=== PATIENT | male | born 1995 | race Caucasian/White ===

== ENCOUNTER 2020-05-30 14:33 | Emergency (ER) | payer OTHER, SELFPAY ==
[2020-05-30] VITALS (12 sets, daily range): BP systolic 118–169; BP diastolic 58–96; PULSE 64–92; RESP 13–28; TEMP 36.7; O2SAT 97–100; BMI 21.4
--- NOTE | 2020-05-30 14:46 | ED_ITS ---
HPI - Chest Pain <Chito Banks [facility] - Last Filed: 05/30/20 16:53> General Chief Complaint: Chest Pain Stated Complaint: chest pain, numbness chest stomach right arm Time Seen by Provider: 05/30/20 14:37 Source: patient Mode of arrival: Ambulatory Limitations: no limitations History of Present Illness HPI narrative: This is a 24-year-old male, nonsmoker, who has past medical history significant for aortic stenosis with valve replacement surgery x2 in 4 and 2 years ago and a pacemaker for postsurgical heart block presents to ED with non reproducible severe mid chest pain radiating to bilateral chest and epigastrium with associated symptoms as right upper and lower extremity numbness which lasted 20-30 minutes without exertion. Patient has cardia management is from . Patient rated pain as 8/10 but now it has subsided to 1/10. Patient initially thought heart burn since he had heartburn symptoms for last 2-3 days which is unusual for him. Patient denies nausea, vomiting, short of breath, dizziness. Patient denies recent changes in diet eating more spicy or oily food. Patient denies exposure to known COVID. Patient currently on warfarin with a therapeutic goal of 2-3. Last INR checked 2 days ago with 2.9. PCP Dr. Lopez at [facility]. Related Data Previous Rx's Medication Instructions Recorded prednisone 40 mg PO DAILY #10 tab 05/30/20 Allergies Allergy/AdvReac Type Severity Reaction Status Date / Time No Known Drug Allergies Allergy Verified 05/30/20 14:42 Review of Systems <Chito Banks [facility] - Last Filed: 05/30/20 16:53> Review of Systems Narrative: General: Denies fever, chills, fatigue, malaise, sweats. HEENT: Denies sinus pain, ear pain, sore throat, difficulty swallowing, dizziness. Respiratory: Denies dyspnea, cough, wheezing, hemoptysis, sputum. Cardiovascular: See HPI Gastrointestinal: Denies nausea, vomiting, abdominal pain, diarrhea, constipation, melena. : Denies dysuria, frequency, incontinence, hematuria, urinary retention. Musculoskeletal: Denies weakness, joint pain or bony pain. Skin: Denies rash, skin lesions, or other. Neurologic: Denies weakness, headache, (+) RUE and RLE numbness, change in speech, confusion, seizures, incoordination. Psychiatric: No concerning psychosocial issues. 12-point review of systems is negative except for those stated above. Patient History <KADEEM Coffman - Last Filed: 05/30/20 16:53> Medical History Aortic stenosis Heart block Pacemaker Surgical History Aortic valve replaced Social History Smoking Status: Never smoker Smoking Status: Never smoker Substance Use Type: does not use Exam <KADEEM Coffman - Last Filed: 05/30/20 16:53> Narrative Exam Narrative: GEN: Alert, oriented x 3, well appearing and nourished, and in no acute distress. Head: Normal cephalic, atraumatic. No scalp or temporal tenderness, palpable mass or rash. EYES: Pupils are equal, round, and reactive to light and accommodation. Extraocular muscles are intact bilaterally. There is no subconjunctival hemorrhage, exudate and sclera non-icteric. ENT: Hearing grossly intact. Nose without bleeding, purulent discharge or deviation. Mucous membrane moist, no mucosal lesion. Throat without erythema, tonsillar hypertrophy or exudate. Uvula in midline, airway patent. Neck: Trachea in midline. No JVD, non-tender without lymphadenopathy. No masses or thyroid megaly. Supple, non-tender and no meningeal signs. CARDIAC: Normal regular rate and rhythm without murmurs, gallops, or rubs but clicks. No chest wall tenderness. No peripheral edema, cyanosis or pallor. Capillary refill is less than 2 seconds. RESPIRATORY: Lungs are clear to auscultate bilaterally. No cough, wheezes, rales, or rhonchi. No stridor, respiratory distress, increase work of breathing, or accessary muscle used. ABD: Abdomen soft, nontender and non-distended. No guarding or rebound tenderness to palpate. Bowel sounds are normal in all 4 quadrants. There is no palpable masses or organomegaly. EXT: Full painless ROM of all extremities with no loss of sensation, strength, effusion or edema. SKIN: Well-healed vertical surgical incision on sternum and left upper clavicle region. Warm, dry, normal color for patient. No erythema, lesions or rash over visible areas. BACK: Nontender without deformity or crepitance. No flank tenderness. NEUROLOGICAL: Alert and oriented to place, time and person. Sensation and motor function intact bilaterally. No facial droops, dysphasia. PSYCHIATRIC: Good judgement and reason, without hallucinations, abnormal affect or abnormal behaviors during the examination. Patient is not suicidal. Initial Vital Signs Initial Vital Signs: Vital Signs Temperature 98.1 F 05/30/20 14:42 Pulse Rate 92 H 05/30/20 14:42 Respiratory Rate 17 05/30/20 14:42 Blood Pressure 169/96 H 05/30/20 14:42 Pulse Oximetry 100 05/30/20 14:42 <Ruby Haque DO - Last Filed: 05/31/20 10:57> Initial Vital Signs Initial Vital Signs: Vital Signs Temperature 98.1 F 05/30/20 14:42 Pulse Rate 92 H 05/30/20 14:42 Respiratory Rate 17 05/30/20 14:42 Blood Pressure 169/96 H 05/30/20 14:42 Pulse Oximetry 100 05/30/20 14:42 Scores <KADEEM Coffman - Last Filed: 05/30/20 16:53> GCS [place] coma scale eye opening: Spontaneous Malorie coma scale verbal response: Orientated Malorie coma scale motor response: Obey commands Malorie coma scale total score: 15 HEART Score Heart Score history: Slightly Suspicious Heart Score EKG: Non-Specific repolarization disturbance Heart Score Age: < 45 years old Heart Score risk factors: 1-2 risk factors Heart Score troponin: < or = to normal limit Heart Score Total: 2 Course <KADEEM Coffman - Last Filed: 05/30/20 16:53> Orders Ordered: Discontinued Medications Al Hydrox/Mg Hydrox/Simethicone 20 ml/ Lidocaine HCl 10 ml 0 ml PO NOW ONE Stop: 05/30/20 15:38 Last Admin: 05/30/20 15:54 Dose: 30 ml Documented by: JOSE RAMON Ketorolac Tromethamine (Ketorolac 60 Mg/2 Ml Vial) 15 mg IV NOW ONE Stop: 05/30/20 17:12 Last Admin: 05/30/20 17:16 Dose: 15 mg Documented by: JOSE RAMON Pantoprazole Sodium (Pantoprazole 40 Mg Vial) 40 mg IV NOW ONE Stop: 05/30/20 14:48 Last Admin: 05/30/20 14:53 Dose: 40 mg Documented by: KAMERON Potassium Chloride (Potassium Chloride 20 Meq/15 Ml Udc) 40 meq PO NOW ONE Stop: 05/30/20 15:16 Last Admin: 05/30/20 15:21 Dose: 40 meq Documented by: JOSE RAMON Reevaluation(s) Reevaluation #1: Waiting for cardiac enzymes. Slightly hypokalemic of 3.1 and replacement of potassium chloride 40 mEq ordered. Time: 15:22 Reevaluation #2: Shortly after potassium mixed with orange juice, patient r eports recurring burning sensation chest pain. Will order GI cocktail to see this is effective treating patient's symptoms. Cardiac enzyme 1st set was negative. Will recheck post 3 hour for 2nd cardiac enzyme. Time: 15:54 Reevaluation #3: After 15 min post GI cocktail, patient reports burning sensation radiating to bilateral arm improved. Time: 16:42 Vital Signs Vital signs: Vital Signs - 8 hr 05/30/20 14:42 05/30/20 14:44 05/30/20 15:00 Temperature 98.1 F Pulse Rate 92 H 76 67 Respiratory Rate 17 28 H 13 Blood Pressure 169/96 H Pulse Oximetry 100 100 100 05/30/20 15:30 05/30/20 16:00 05/30/20 16:30 Temperature Pulse Rate 64 80 78 Respiratory Rate 15 20 22 Blood Pressure Pulse Oximetry 100 100 100 05/30/20 17:00 05/30/20 17:30 05/30/20 18:00 Temperature Pulse Rate 78 72 70 Respiratory Rate 17 14 16 Blood Pressure Pulse Oximetry 100 100 98 <Ruby Haque, - Last Filed: 05/31/20 10:57> Orders Ordered: Discontinued Medications Al Hydrox/Mg Hydrox/Simethicone 20 ml/ Lidocaine HCl 10 ml 0 ml PO NOW ONE Stop: 05/30/20 15:38 Last Admin: 05/30/20 15:54 Dose: 30 ml Documented by: JOSE RAMON Ketorolac Tromethamine (Ketorolac 60 Mg/2 Ml Vial) 15 mg IV NOW ONE Stop: 05/30/20 17:12 Last Admin: 05/30/20 17:16 Dose: 15 mg Documented by: JOSE RAMON Pantoprazole Sodium (Pantoprazole 40 Mg Vial) 40 mg IV NOW ONE Stop: 05/30/20 14:48 Last Admin: 05/30/20 14:53 Dose: 40 mg Documented by: KAMERON Potassium Chloride (Potassium Chloride 20 Meq/15 Ml Udc) 40 meq PO NOW ONE Stop: 05/30/20 15:16 Last Admin: 05/30/20 15:21 Dose: 40 meq Documented by: JOSE RAMON Vital Signs Vital signs: Vital Signs - 8 hr 05/30/20 14:42 05/30/20 14:44 05/30/20 15:00 Temperature 98.1 F Pulse Rate 92 H 76 67 Respiratory Rate 17 28 H 13 Blood Pressure 169/96 H Pulse Oximetry 100 100 100 05/30/20 15:30 05/30/20 16:00 05/30/20 16:30 Temperature Pulse Rate 64 80 78 Respiratory Rate 15 20 22 Blood Pressure Pulse Oximetry 100 100 100 05/30/20 17:00 05/30/20 17:30 05/30/20 18:00 Temperature Pulse Rate 78 72 70 Respiratory Rate 17 14 16 Blood Pressure Pulse Oximetry 100 100 98 MDM - Chest Pain <KADEEM Coffman - Last Filed: 05/30/20 16:53> Differential Diagnosis Differential diagnosis: Likely stable angina, atypical chest pain and other (ACS, electrolyte imbalance, GERD) Medical Records Data Attestation: I reviewed the patient's medical records. Lab Data Result diagrams: 05/30/20 14:45 05/30/20 14:45 Labs: Lab Results 05/30/20 05/30/20 05/30/20 Range/Units 14:45 14:45 14:45 WBC 8.1 (4.5-11.0) X10^3/uL RBC 5.22 (4.5-5.9) X10^6/uL Hgb 15.7 (13.5-17.5) g/dL Hct 46.7 (41-53) % MCV 89.4 (80-100) fL MCH 30.1 (26-34) PG MCHC 33.6 (30-36) % RDW 13.4 (11.6-14.8) % Plt Count 313 (150-400) X10^3/uL Neut % (Auto) 52.2 (50-75) % Lymph % (Auto) 37.9 (25-40) % [place] % (Auto) 8.3 (3-14) % Eos % (Auto) 1.1 L (2-4) % Baso % (Auto) 0.5 (0-2) % Neut # (Auto) 4200 (7804-0327) /uL Lymph # (Auto) 3100 (7572-6294) /uL [place] # (Auto) 700 (0-900) /uL Eos # (Auto) 100 (0-450) /uL Baso # (Auto) 0 (0-100) /uL PT (10.1-12.7) SECONDS INR (0.9-1.3) APTT 43 H (26.4-36.2) SECONDS Sodium 140 (137-145) mmol/L Potassium 3.1 L (3.4-5.1) mmol/L Chloride 101 (98-107) mmol/L Carbon Dioxide 33 H (22-32) mmol/L BUN 12 (9-20) mg/dL Creatinine 0.85 (0.66-1.25) mg/dL Estimated GFR > 60.0 (>60) mL/min BUN/Creatinine Ratio 14.1 (6-22) Glucose 115 H (70-100) mg/dL Calcium 9.7 (8.4-10.2) mg/dL Magnesium 1.9 (1.6-2.3) mg/dL Total Bilirubin 0.9 (0.2-1.3) mg/dL AST 27 (17-59) IU/L ALT 15 (<50) IU/L Alkaline Phosphatase 63 (38-126) U/L Total Creatine Kinase 122 (55-170) U/L CK-MB (CK-2) 1.14 (<2.37) ng/mL CK-MB (CK-2) Rel Index 0.9 L (1.5-5.0) % Troponin I < 0.012 (0.01-0.034) ng/mL NT-Pro-B Natriuret Pep 34 (<125) pg/mL Total Protein 8.3 H (6.3-8.2) g/dL Albumin 4.9 (3.5-5.0) g/dL Globulin 3.4 (1.7-4.1) g/dL Albumin/Globulin Ratio 1.4 (1.0-2.8) Lipase 66 (23-300) U/L 05/30/20 05/30/20 Range/Units 14:45 17:35 WBC (4.5-11.0) X10^3/uL RBC (4.5-5.9) X10^6/uL Hgb (13.5-17.5) g/dL Hct (41-53) % MCV (80-100) fL MCH (26-34) PG MCHC (30-36) % RDW (11.6-14.8) % Plt Count (150-400) X10^3/uL Neut % (Auto) (50-75) % Lymph % (Auto) (25-40) % [place] % (Auto) (3-14) % Eos % (Auto) (2-4) % Baso % (Auto) (0-2) % Neut # (Auto) (0731-9752) /uL Lymph # (Auto) (1836-8855) /uL [place] # (Auto) (0-900) /uL Eos # (Auto) (0-450) /uL Baso # (Auto) (0-100) /uL PT 21.3 H (10.1-12.7) SECONDS INR 1.9 H (0.9-1.3) APTT (26.4-36.2) SECONDS Sodium (137-145) mmol/L Potassium (3.4-5.1) mmol/L Chloride (98-107) mmol/L Carbon Dioxide (22-32) mmol/L BUN (9-20) mg/dL Creatinine (0.66-1.25) mg/dL Estimated GFR (>60) mL/min BUN/Creatinine Ratio (6-22) Glucose (70-100) mg/dL Calcium (8.4-10.2) mg/dL Magnesium (1.6-2.3) mg/dL Total Bilirubin (0.2-1.3) mg/dL AST (17-59) IU/L ALT (<50) IU/L Alkaline Phosphatase (38-126) U/L Total Creatine Kinase (55-170) U/L CK-MB (CK-2) (<2.37) ng/mL CK-MB (CK-2) Rel Index (1.5-5.0) % Troponin I < 0.012 (0.01-0.034) ng/mL NT-Pro-B Natriuret Pep (<125) pg/mL Total Protein (6.3-8.2) g/dL Albumin (3.5-5.0) g/dL Globulin (1.7-4.1) g/dL Albumin/Globulin Ratio (1.0-2.8) Lipase (23-300) U/L Imaging Data Chest x-ray: Radiologist's Impression: [address] [id number] ReportSigned Patient: Bin Mejia LMR#: [id number]: 1995Acct:[id number]/Sex: 24 / MDate of Service: 05/30/20Loc: EDAccession Number: [id number] Procedure: XR chest 1V Ordering Provider: Chito Banks PROCEDURE: XR CHEST 1V INDICATIONS: chest pain TECHNIQUE: One view of the chest was acquired. COMPARISON: [facility], , XR CHEST 1 VIEW, 05/28/2019, 12:04. FINDINGS: Surgical changes and devices: A cardiac pacemaker is seen with pulse generator in the left chest. Sternotomy wires and prosthetic heart valve are noted. Lungs and pleura: Lungs are clear. No pleural effusions or pneumothorax. Mediastinum: Mediastinal contours appear normal. Heart size is normal. Bones and chest wall: No suspicious bony lesions. Overlying soft tissues appear unremarkable. IMPRESSION: No acute cardiopulmonary abnormality Dictated by: Eleuterio Kong M.D. on 05/30/2020 at 15:10 Approved by: Eleuterio Kong M.D. on 05/30/2020 at 15:16 ECG Data Attestation: I personally reviewed and interpreted this ECG as follows: Prior ECG tracings: not available for review Interpretation: Normal sinus rhythm with sinus arrhythmia rate at 80. Normal axis. RSR pattern in V1. WI duration 100, QRS duration 100, QT/QTC 380/438. Nonspecific ST anbormality. MDM Narrative Medical decision making narrative: This is a 24-year-old male who has genetic aortic stenosis and had mechanical valve replacement surgery twice and head post surgical heart block and has pacemaker in placed presents to ED with nonexertional chest and associated symptoms as right upper and lower extremity numbness for 20 minutes or so before coming into ED. patient reports head acid reflux symptoms 2-3 days prior to days chest discomfort. Physical exam was unremarkable. EKG shows normal sinus rhythm with sinus arrhythmia rate at 80 with right ventricular conduction delay, nonspecific ST abnormality. Chest x-ray without acute findings. CBC, chemistry tests were unremarkable except mild hypokalemia of 3.1. First Cardiac enzymes were negative. Increased APTT of 43. Waiting for PT/INR test results. Patient currently takes Coumadin. Shortly after patient was medicated with potassium chloride liquid and orange juice, patient had recurring epigastric burning discomfort which radiated to bilateral upper arm. GI cocktail provided and after 15 minutes or so, discomfort started to subside. Waiting for 2nd cardiac enzymes. Will treat patient as GERD. Patient has follow-up with blueprint engineer in July, if patient's symptoms persists with GERD medication, patient advised to follow-up with blueprint engineer sooner. Patient signed out to Dr. haque to follow-up with 2nd cardiac enzymes. <Ruby Haque, DO - Last Filed: 05/31/20 10:57> Lab Data Attestation: I reviewed the patient's lab results. Labs: Lab Results 05/30/20 05/30/20 05/30/20 Range/Units 14:45 14:45 14:45 WBC 8.1 (4.5-11.0) X10^3/uL RBC 5.22 (4.5-5.9) X10^6/uL Hgb 15.7 (13.5-17.5) g/dL Hct 46.7 (41-53) % MCV 89.4 (80-100) fL MCH 30.1 (26-34) PG MCHC 33.6 (30-36) % RDW 13.4 (11.6-14.8) % Plt Count 313 (150-400) X10^3/uL Neut % (Auto) 52.2 (50-75) % Lymph % (Auto) 37.9 (25-40) % [place] % (Auto) 8.3 (3-14) % Eos % (Auto) 1.1 L (2-4) % Baso % (Auto) 0.5 (0-2) % Neut # (Auto) 4200 (4994-4884) /uL Lymph # (Auto) 3100 (3184-5620) /uL [place] # (Auto) 700 (0-900) /uL Eos # (Auto) 100 (0-450) /uL Baso # (Auto) 0 (0-100) /uL PT (10.1-12.7) SECONDS INR (0.9-1.3) APTT 43 H (26.4-36.2) SECONDS Sodium 140 (137-145) mmol/L Potassium 3.1 L (3.4-5.1) mmol/L Chloride 101 (98-107) mmol/L Carbon Dioxide 33 H (22-32) mmol/L BUN 12 (9-20) mg/dL Creatinine 0.85 (0.66-1.25) mg/dL Estimated GFR > 60.0 (>60) mL/min BUN/Creatinine Ratio 14.1 (6-22) Glucose 115 H (70-100) mg/dL Calcium 9.7 (8.4-10.2) mg/dL Magnesium 1.9 (1.6-2.3) mg/dL Total Bilirubin 0.9 (0.2-1.3) mg/dL AST 27 (17-59) IU/L ALT 15 (<50) IU/L Alkaline Phosphatase 63 (38-126) U/L Total Creatine Kinase 122 (55-170) U/L CK-MB (CK-2) 1.14 (<2.37) ng/mL CK-MB (CK-2) Rel Index 0.9 L (1.5-5.0) % Troponin I < 0.012 (0.01-0.034) ng/mL NT-Pro-B Natriuret Pep 34 (<125) pg/mL Total Protein 8.3 H (6.3-8.2) g/dL Albumin 4.9 (3.5-5.0) g/dL Globulin 3.4 (1.7-4.1) g/dL Albumin/Globulin Ratio 1.4 (1.0-2.8) Lipase 66 (23-300) U/L 05/30/20 05/30/20 Range/Units 14:45 17:35 WBC (4.5-11.0) X10^3/uL RBC (4.5-5.9) X10^6/uL Hgb (13.5-17.5) g/dL Hct (41-53) % MCV (80-100) fL MCH (26-34) PG MCHC (30-36) % RDW (11.6-14.8) % Plt Count (150-400) X10^3/uL Neut % (Auto) (50-75) % Lymph % (Auto) (25-40) % [place] % (Auto) (3-14) % Eos % (Auto) (2-4) % Baso % (Auto) (0-2) % Neut # (Auto) (5545-6108) /uL Lymph # (Auto) (7303-8381) /uL [place] # (Auto) (0-900) /uL Eos # (Auto) (0-450) /uL Baso # (Auto) (0-100) /uL PT 21.3 H (10.1-12.7) SECONDS INR 1.9 H (0.9-1.3) APTT (26.4-36.2) SECONDS Sodium (137-145) mmol/L Potassium (3.4-5.1) mmol/L Chloride (98-107) mmol/L Carbon Dioxide (22-32) mmol/L BUN (9-20) mg/dL Creatinine (0.66-1.25) mg/dL Estimated GFR (>60) mL/min BUN/Creatinine Ratio (6-22) Glucose (70-100) mg/dL Calcium (8.4-10.2) mg/dL Magnesium (1.6-2.3) mg/dL Total Bilirubin (0.2-1.3) mg/dL AST (17-59) IU/L ALT (<50) IU/L Alkaline Phosphatase (38-126) U/L Total Creatine Kinase (55-170) U/L CK-MB (CK-2) (<2.37) ng/mL CK-MB (CK-2) Rel Index (1.5-5.0) % Troponin I < 0.012 (0.01-0.034) ng/mL NT-Pro-B Natriuret Pep (<125) pg/mL Total Protein (6.3-8.2) g/dL Albumin (3.5-5.0) g/dL Globulin (1.7-4.1) g/dL Albumin/Globulin Ratio (1.0-2.8) Lipase (23-300) U/L ECG Data Attestation: I personally reviewed and interpreted this ECG as follows: Prior ECG tracings: not available for review Interpretation: EKG 1. Normal sinus rhythm rate 80 p.r. interval 138 QRS [address] changes possible delta wave noted no priors to compare no ST changes no WI depression EKG 2. Sinus rhythm rate 71 similar to previous EKG MDM Narrative Medical decision making narrative: 17:10 called the patient's room for worsening chest pain. Nurse also noticed a rash on his chest which now seems to be fading. His pain is definitely better when he sits upright and worse when he lays down. GI cocktail did not seem to help. He is on Coumadin. Pain is definitely worse while lying down and better will standing up. Toradol has significantly improved the pain. Symptoms were consistent with pericarditis. WI interval also short no significant WI depression. Unable to be on NSAIDs secondary to Coumadin, will put him on prednisone. Discharge Plan Departure Patient Disposition: Home Clinical Impression: Pericarditis Qualifiers: Pericarditis type: other type Chronicity: acute Qualified Code(s): I30.8 - Other forms of acute pericarditis Instructions: DI for Pericarditis Activity Restrictions/Additional Instructions: *You have been diagnosed with pericarditis *What to do: At this time I think you have inflammation around her heart causing your pain. Anti-inflammatories should help. Avoid NSAIDs because you are on Coumadin *Continue to take medications as directed Prednisone 40 mg once a day for 5 days *Follow up with your primary care provider in 2-3 days [and follow up with ortho, urology etc] *Return to ER if you should have [such as] [or] any new, worsening or concerning symptoms Prescriptions: New prednisone 20 mg tablet 40 mg PO DAILY Qty: 10 RF: 0
--- NOTE | 2020-05-30 14:51 | PC.NURSE ---
Patient born with aortic stenosis has had two valve replacements. Patient had sudden onset of left chest pain radiating into right arm, followed by numbness down legs, abd and chest. Now resolved. lasted approx 20-30min. Reports he has had some heart burn the last couple days and was thinking it was related.
[2020-05-30] MEDS: PANTOPRAZOLE 40 MG VIAL IV (14:53)
[2020-05-30 14:54] LABS: Add Manual Diff / Slide Review NO; Basophils Absolute Auto 0 /uL (0-100); Basophils Percent Auto 0.5 % (0-2); Eosinophils Absolute Auto 100 /uL (0-450); Eosinophils Percent Auto 1.1 % (2-4); Hematocrit 46.7 % (41-53); Hemoglobin 15.7 g/dL (13.5-17.5); Lymphocytes Absolute Auto 3100 /uL (1100-4500); Lymphocytes Percent Auto 37.9 % (25-40); Mean Corpuscular HGB Conc 33.6 % (30-36); Mean Corpuscular Hemoglobin 30.1 PG (26-34); Mean Corpuscular Volume 89.4 fL (80-100); Monocytes Absolute Auto 700 /uL (0-900); Monocytes Percent Auto 8.3 % (3-14); Neutrophils Absolute Auto 4200 /uL (1500-7000); Neutrophils Percent Auto 52.2 % (50-75); Platelet Count 313 X10^3/uL (150-400); Red Blood Cell Count 5.22 X10^6/uL (4.5-5.9); Red Cell Distribution Width 13.4 % (11.6-14.8); White Blood Cell Count 8.1 X10^3/uL (4.5-11.0)
[2020-05-30 15:01] LABS: PTT Partial Thromboplastin Tim 43 SECONDS (26.4-36.2)
[2020-05-30 15:03] LABS: Alanine Aminotransferase 15 IU/L (<50); Albumin 4.9 g/dL (3.5-5.0); Albumin Globulin Ratio 1.4 (1.0-2.8); Alkaline Phosphatase 63 U/L (38-126); Aspartate Aminotransferase 27 IU/L (17-59); BUN Creatinine Ratio 14.1 (6-22); Bilirubin Total 0.9 mg/dL (0.2-1.3); Blood Urea Nitrogen 12 mg/dL (9-20); Calcium 9.7 mg/dL (8.4-10.2); Carbon Dioxide 33 mmol/L (22-32); Chloride 101 mmol/L (98-107); Creatine Kinase 122 U/L (55-170); Estimated Glomerular Filt Rate > 60.0 mL/min (>60); Globulin 3.4 g/dL (1.7-4.1); Glucose 115 mg/dL (70-100); HEMOLYSIS < 15 (0-50); Lipase 66 U/L (23-300); Magnesium 1.9 mg/dL (1.6-2.3); Potassium 3.1 mmol/L (3.4-5.1); Sodium 140 mmol/L (137-145); Total Protein 8.3 g/dL (6.3-8.2)
[2020-05-30 15:15] LABS: NT-proBNP (BNP-Adult 18+) 34 pg/mL (<125); Troponin I < 0.012 ng/mL (0.01-0.034)
[2020-05-30 15:18] LABS: CKMB % Relative Index 0.9 % (1.5-5.0); Creatine Kinase MB 1.14 ng/mL (<2.37)
[2020-05-30] MEDS: POTASSIUM CHLORIDE 20 MEQ/15 ML UDC 40 MEQ PO (15:21)
[2020-05-30] MEDS: [UNRECOGNIZED DRUG - OTHER] PO (15:54)
[2020-05-30] MEDS: ALUMINUM PO (15:54)
[2020-05-30] MEDS: MAG HYDROX PO (15:54)
[2020-05-30 16:56] LABS: INR 1.9 (0.9-1.3); Prothrombin Time 21.3 SECONDS (10.1-12.7)
--- NOTE | 2020-05-30 17:10 | PC.NURSE ---
Patient sitting up right in bed pain spiked in chest and across abd. Red rash noted across abd and one spot to right of old surgical site. patient reports somewhat painful to touch. Provider brought to bedside, rash has almost completely resolved in matter of minutes. Patient states pain seems to come in waves of intensity. Numbness/ tingling lingers in arms and hands. Denies shortness of breath
--- NOTE | 2020-05-30 17:11 | DI.CT.S_ITS ---
PROCEDURE: CT ANGIO CHEST PE PROTOCOL INDICATIONS: severe chest pain TECHNIQUE: After the administration of intravenous contrast, 2 mm thick sections acquired from the pulmonary apices to the posterior costophrenic angles. 3-dimensional maximum intensity projection (MIP) coronal and sagittal reformats were then acquired through the thorax. For radiation dose reduction, the following was used: automated exposure control, adjustment of mA and/or kV according to patient size. COMPARISON: None. FINDINGS: Image quality: Suboptimal opacification of the pulmonary vasculature. Pulmonary arteries: Pulmonary arteries are normal in size, and demonstrate no definite intraluminal filling defects to suggest central pulmonary embolism. Lungs and pleura: Lungs are clear. No pleural effusions or pneumothorax. Central and peripheral airways are patent. Mediastinum: Heart size is enlarged, without pericardial effusion. No mediastinal or hilar adenopathy. Thoracic aorta is normal in caliber and enhancement. Esophagus is normal in caliber, without hiatal hernia. Bones and chest wall: Median sternotomy. Left-sided pacer. No suspicious bony lesions. Ribs and thoracic spine appear intact throughout. Thyroid gland is within normal limits. No axillary or supraclavicular adenopathy. Abdomen: Visualized upper abdominal solid organs appear normal in the early arterial phase of enhancement. IMPRESSION: 1. No definite pulmonary embolus. 2. Cardiomegaly. Dictated by: Fortino Cardona M.D. on 05/30/2020 at 17:37 Approved by: Fortino Cardona M.D. on 05/30/2020 at 17:40
[2020-05-30] MEDS: KETOROLAC 60 MG/2 ML VIAL 15 MG IV (17:16)
[2020-05-30 18:14] LABS: Troponin I < 0.012 ng/mL (0.01-0.034)
== END 2020-05-30 19:04 | disposition home or self-care (01) ==
PROVIDERS: Emergency Provider Nurse Practitioner Family
DX: I30.8 Other forms of acute pericarditis (principal); I35.0 Nonrheumatic aortic (valve) stenosis; Z95.2 Presence of prosthetic heart valve; Z95.0 Presence of cardiac pacemaker; R20.0 Anesthesia of skin; Z79.01 Long term (current) use of anticoagulants
CPT/HCPCS: 36415; 71045; 71275; 80053; 82550; 82553; 83690; 83735; 83880; 84484; 85025; 85610; 85730; 93005; 96374; 96375; 99284; C9113; J1885

== ENCOUNTER → 2021-02-10 16:24 | Outpatient (CLI) | payer OTHER, SELFPAY ==
[2021-02-10 17:42] LABS: INR 4.4 (0.9-1.3); Prothrombin Time 51.4 SECONDS (10.1-12.7)
== END ==
PROVIDERS: Referring Provider Pharmacist; Visit Provider Pharmacist
DX: Z79.01 Long term (current) use of anticoagulants (principal); Z95.2 Presence of prosthetic heart valve; Z51.81 Encounter for therapeutic drug level monitoring
CPT/HCPCS: 36415; 85610

== ENCOUNTER → 2021-02-25 16:51 | Outpatient (CLI) | payer OTHER, SELFPAY ==
[2021-02-25 17:36] LABS: INR 3.2 (0.9-1.3); Prothrombin Time 37.3 SECONDS (10.1-12.7)
== END ==
PROVIDERS: Referring Provider Pharmacist; Visit Provider Pharmacist
DX: Z98.2 Presence of cerebrospinal fluid drainage device (principal); Z79.01 Long term (current) use of anticoagulants; Z51.81 Encounter for therapeutic drug level monitoring
CPT/HCPCS: 36415; 85610

== ENCOUNTER → 2021-03-17 16:19 | Outpatient (CLI) | payer OTHER, SELFPAY ==
[2021-03-17 17:49] LABS: INR 3.1 (0.9-1.3); Prothrombin Time 36.6 SECONDS (10.1-12.7)
== END ==
PROVIDERS: Referring Provider Pharmacist; Visit Provider Pharmacist
DX: Z95.2 Presence of prosthetic heart valve (principal); Z79.01 Long term (current) use of anticoagulants; Z51.81 Encounter for therapeutic drug level monitoring
CPT/HCPCS: 36415; 85610

== ENCOUNTER → 2021-04-14 09:03 | Outpatient (CLI) | payer OTHER, SELFPAY ==
[2021-04-14 10:19] LABS: INR 2.9 (0.9-1.3)
== END ==
PROVIDERS: Referring Provider Pharmacist; Visit Provider Pharmacist
DX: Z95.2 Presence of prosthetic heart valve (principal); Z79.01 Long term (current) use of anticoagulants; Z51.81 Encounter for therapeutic drug level monitoring
CPT/HCPCS: 36415; 85610

== ENCOUNTER → 2021-05-21 14:50 | Outpatient (CLI) | payer OTHER, SELFPAY ==
[2021-05-21 15:54] LABS: INR 2.6 (0.9-1.3); Prothrombin Time 30.5 SECONDS (10.1-12.7)
== END ==
PROVIDERS: Referring Provider Pharmacist; Visit Provider Pharmacist
DX: Z95.2 Presence of prosthetic heart valve (principal); Z79.01 Long term (current) use of anticoagulants; Z51.81 Encounter for therapeutic drug level monitoring
CPT/HCPCS: 36415; 85610

== ENCOUNTER → 2021-06-22 15:59 | Outpatient (CLI) | payer OTHER, SELFPAY ==
[2021-06-22 16:27] LABS: INR 2.6 (0.9-1.3); Prothrombin Time 29.9 SECONDS (10.1-12.7)
== END ==
PROVIDERS: Referring Provider Internal Medicine Cardiovascular Disease; Visit Provider Internal Medicine Cardiovascular Disease
DX: Z95.2 Presence of prosthetic heart valve (principal); Z79.01 Long term (current) use of anticoagulants; Z51.81 Encounter for therapeutic drug level monitoring
CPT/HCPCS: 36415; 85610

== ENCOUNTER → 2021-08-03 12:06 | Outpatient (CLI) | payer OTHER, SELFPAY ==
[2021-08-03 13:35] LABS: INR 2.1 (0.9-1.3); Prothrombin Time 24.7 SECONDS (10.1-12.7)
== END ==
PROVIDERS: Referring Provider Pharmacist; Visit Provider Pharmacist
DX: Z95.2 Presence of prosthetic heart valve (principal); Z79.01 Long term (current) use of anticoagulants; Z51.81 Encounter for therapeutic drug level monitoring
CPT/HCPCS: 36415; 85610

== ENCOUNTER → 2021-09-15 17:09 | Outpatient (CLI) | payer OTHER, SELFPAY ==
[2021-09-15 18:02] LABS: INR 3.6 (0.9-1.3); Prothrombin Time 42.5 SECONDS (10.1-12.7)
== END ==
PROVIDERS: Referring Provider Pharmacist; Visit Provider Pharmacist
DX: Z79.01 Long term (current) use of anticoagulants (principal); Z95.2 Presence of prosthetic heart valve; Z51.81 Encounter for therapeutic drug level monitoring
CPT/HCPCS: 36415; 85610

== ENCOUNTER → 2021-10-28 16:38 | Outpatient (CLI) | payer OTHER, SELFPAY ==
[2021-10-28 17:12] LABS: INR 2.7 (0.9-1.3); Prothrombin Time 31.3 SECONDS (10.1-12.7)
== END ==
PROVIDERS: PCP Nurse Practitioner Family; Referring Provider Pharmacist; Visit Provider Pharmacist
DX: Z95.2 Presence of prosthetic heart valve (principal); Z79.01 Long term (current) use of anticoagulants; Z51.81 Encounter for therapeutic drug level monitoring
CPT/HCPCS: 36415; 85610

== ENCOUNTER → 2021-12-23 10:44 | Outpatient (CLI) | payer OTHER, SELFPAY ==
[2021-12-23 12:05] LABS: Prothrombin Time 35.2 SECONDS (10.1-12.7)
== END ==
PROVIDERS: PCP Nurse Practitioner Family; Referring Provider Pharmacist; Visit Provider Pharmacist
DX: Z51.81 Encounter for therapeutic drug level monitoring (principal); Z79.01 Long term (current) use of anticoagulants; Z95.2 Presence of prosthetic heart valve
CPT/HCPCS: 36415; 85610